=== PATIENT | female | born 1975 | race African-American/Black ===

== ENCOUNTER 2019-03-09 21:04 | Emergency (ER) | payer OTHER ==
--- NOTE | 2019-03-09 21:31 | ER Document Report ---
ED Medical Screen (RME) - General Stated Complaint: FEVER Time Seen by Provider: 03/09/19 21:26 Mode of Arrival: Ambulatory Information source: Patient Notes: This 44-year-old female with no past medical history presents today with reports of fever up to 102 on and off since last week. Reports cough sinus drainage sinus pressure ears hurting. I have greeted and performed a rapid initial assessment of this patient. A comprehensive ED assessment and evaluation of the patient, analysis of test results and completion of the medical decision making process will be conducted by additional ED providers. Dictation of this chart was performed using voice recognition software; therefore, there may be some unintended grammatical errors. TRAVEL OUTSIDE OF THE [place] IN LAST 30 DAYS: No - Related Data Allergies/Adverse Reactions: acetaminophen [From Percocet] Allergy (Verified 04/02/15 18:49) cefuroxime axetil [From Ceftin] Allergy (Verified 04/02/15 18:49) oxycodone HCl [From Percocet] Allergy (Verified 04/02/15 18:49) sulfamethoxazole [From Septra] Allergy (Verified 04/02/15 18:49) trimethoprim [From Septra] Allergy (Verified 04/02/15 18:49) vancomycin [Vancomycin] Allergy (Verified 04/02/15 18:49) Past Medical History - Past Medical History Cardiac Medical History: Reports: Hx Hypercholesterolemia, Hx Hypertension Neurological Medical History: Reports: Hx Migraine Renal/ Medical History: Reports: Hx Ovarian Cysts Skin Medical History: Reports Hx Cellulitis, Reports Hx MRSA Past Surgical History: Reports: Hx Adenoidectomy, Hx Section, Hx Chol ecystectomy, Hx Myringotomy, Hx Nose Surgery, Hx Tonsillectomy - Immunizations Immunizations up to date: Yes Hx Diphtheria, Pertussis, Tetanus Vaccination: Yes Physical Exam - Vital signs Vitals: Temp Pulse Resp BP Pulse Ox 99.2 F 99 18 179/96 H 100 03/09/19 21:09 03/09/19 21:09 03/09/19 21:09 03/09/19 21:09 03/09/19 21:09 Course - Vital Signs Vital signs: Temp Pulse Resp BP Pulse Ox 99.2 F 99 18 179/96 H 100 03/09/19 21:09 03/09/19 21:09 03/09/19 21:09 03/09/19 21:09 03/09/19 21:09
[2019-03-09] MEDS ORDERED: DEXAMETHASONE SOD PHOS INJ 10 MG/1 ML VIAL IM ONE (22:37)
--- NOTE | 2019-03-09 22:37 | RADIOLOGY REPORT (SQ) ---
EXAM DESCRIPTION: XR CHEST 2 VIEWS COMPLETED DATE/TME: 03/09/2019 21:29 CLINICAL HISTORY: cough COMPARISON: None FINDINGS: Cardiac silhouette is within normal limits. There is no focal parenchymal or pleural disease. There is no acute osseous process visualized. IMPRESSION: No evidence of acute cardiopulmonary disease.
--- NOTE | 2019-03-09 22:38 | RADIOLOGY REPORT (SQ) ---
CLINICAL HISTORY: sinus pressure pain fever COMPARISON: None. FINDINGS: Single view of the paranasal sinuses were submitted. There is mucoperiosteal thickening of the right maxillary sinus compatible chronic sinusitis changes. No fluid levels are noted. Questionable mucoperiosteal thickening of the left maxillary sinus versus possible mucoid retention cyst. IMPRESSION: Chronic sinusitis changes. No fluid level to suggest acute sinusitis visualized in this single view. Correlation with a CT could be helpful for further evaluation.
--- NOTE | 2019-03-09 22:41 | ER Document Report ---
ED General - General Chief Complaint: Productive Cough Stated Complaint: FEVER Time Seen by Provider: 03/09/19 21:26 Mode of Arrival: Ambulatory TRAVEL OUTSIDE OF THE [place] IN LAST 30 DAYS: No - HPI Notes: Patient is a 44-year-old female who presents to the ED complaining of nasal congestion/discharge, sinus pressure, semi-productive cough, feverish, body aches, sore throat, hoarseness 1 week. Pt states that she is able to swallow, but will feel like food gets stuck on occasion. She has not had any drooling. She is still urinating normally having normal bowel movements. Patient has been using some [id number] meds for symptoms. She denies any significant past medical history including cardiopulmonary history and immunocompromised conditions. Patient denies any smoking or IV drug use. Denies any current headache, neck pain, chest pain, palpitations, syncope, shortness of breath, wheeze, dyspnea, abdominal pain, nausea/vomiting/diarrhea, urinary retention, dysuria, hematuria, or rash. H/o tonsilectomy. - Related Data Allergies/Adverse Reactions: acetaminophen [From Percocet] Allergy (Verified 04/02/15 18:49) cefuroxime axetil [From Ceftin] Allergy (Verified 04/02/15 18:49) oxycodone HCl [From Percocet] Allergy (Verified 04/02/15 18:49) sulfamethoxazole [From Septra] Allergy (Verified 04/02/15 18:49) trimethoprim [From Septra] Allergy (Verified 04/02/15 18:49) vancomycin [Vancomycin] Allergy (Verified 04/02/15 18:49) Past Medical History - General Information source: Patient - Social History Smoking Status: Never Smoker Chew tobacco use (# tins/day): No Frequency of alcohol use: Social Drug Abuse: None Family History: Arthritis, CVA, DM, Hyperlipidemia, Hypertension, Malignancy, Thyroid Disfunction Patient has suicidal ideation: No Patient has homicidal ideation: No - Past Medical History Cardiac Medical History: Reports: Hx Hypercholesterolemia, Hx Hypertension Neurological Medical History: Reports: Hx Migraine Renal/ Medical History: Reports: Hx Ovarian Cysts Skin Medical History: Reports Hx Cellulitis, Reports Hx MRSA Past Surgical History: Reports: Hx Adenoidectomy, Hx Section, Hx Cholecystectomy, Hx Myringotomy, Hx Nose Surgery, Hx Tonsillectomy - Immunizations Immunizations up to date: Yes Hx Diphtheria, Pertussis, Tetanus Vaccination: Yes Review of Systems - Review of Systems -: Yes All other systems reviewed and negative Physical Exam - Vital signs Vitals: Temp Pulse Resp BP Pulse Ox 99.2 F 99 18 179/96 H 100 03/09/19 21:09 03/09/19 21:09 03/09/19 21:09 03/09/19 21:09 03/09/19 21:09 - Notes Notes: PHYSICAL EXAMINATION: GENERAL: Well-appearing, well-nourished and in no acute distress. A&Ox4. Answers questions appropriately. Moves comfortably w/o notable distress HEAD: Atraumatic, normocephalic. EYES: Pupils equal round and reactive to light, extraocular movements intact, sclera anicteric, conjunctiva are normal. ENT: EAC clear b/l. TM's intact b/l without erythema, fluid, or perforation. Nares patent and with clear discharge. oropharynx mild erythema without exudates. tonsils absent. No palatine shift. Uvula midline. No tongue protrusion. + hoarseness of voice noted. No drooling or airway compromise. Moist mucous membranes. + mild b/l maxillary sinus tenderness. NECK: Normal range of motion, supple without lymphadenopathy. No rigidity/meningismus. LUNGS: Breath sounds clear to auscultation bilaterally and equal. No wheezes rales or rhonchi. No retractions HEART: Regular rate and rhythm without murmurs, rubs, gallops. ABDOMEN: Soft, nontender, nondistended abdomen. No guarding, no rebound. Normal bowel sounds present. No CVA tenderness bilaterally. NEUROLOGICAL: Normal speech, normal gait. PSYCH: Normal mood, normal affect. SKIN: Warm, Dry, normal turgor, no rashes or lesions noted. Course - Re-evaluation Re-evalutation: 03/09/19 23:15 Patient is an afebrile, well-hydrated, 44-year-old female who presents to the ED with acute URI, suspect viral. Vitals are acceptable. PE is otherwise unremarkable. CXR/Water's view negative. Rapid strep neg. UA/hcg unremarkable. No other labs or imaging warranted at this time based on H&P. Patient has no significant cardiopulmonary or immunocompromised medical conditions. Patient's lungs are clear to auscultation bilaterally without tachycardia, hypoxia, or tachypnea. Patient is tolerating p.o. without any difficulties as tested by myself in the room with PO fluids/food. Pt was given decadron. Pt states that she is feeling better than when she arrived. Low suspicion for any meningitis, sepsis, peritonsillar/pharyngeal abscess, respiratory compromise, severe dehydration, pneumonia, epiglottitis, or other emergent systemic condition at this time. Patient is aware this condition can change from initial presentation and she needs to monitor symptoms closely. Conservative measures otherwise for symptoms. Recheck with your PCM in 2-3 days. Return to the ED with any worsening/concerning symptoms otherwise as reviewed in discharge. Patient is in agreement. - Vital Signs Vital signs: Temp Pulse Resp BP Pulse Ox 99.2 F 99 18 179/96 H 100 03/09/19 21:09 03/09/19 21:09 03/09/19 21:09 03/09/19 21:09 03/09/19 21:09 - Laboratory Laboratory results interpreted by me: 03/09/19 22:39 Urine Blood SMALL H Discharge - Discharge Clinical Impression: Acute URI Condition: Stable Disposition: HOME, SELF-CARE Instructions: Upper Respiratory Illness ([facility]) Additional Instructions: Maintain adequate fluid intake tylenol/ibuprofen as needed alternating every 3 hours for fever/body ache over the counter cold medication as needed for symptoms Humidified air may help Wash your hands regularly Wear a mask when coughing F/u: with your PCM in 2-3 days for a recheck Return to the ED with any fever, altered mental status/behavior, chest pain, palpitations, syncope, headache, neck pain/stiffness, shortness of breath, chest pains, wheezing, drooling, trouble swallowing/breathing, abdominal pain, n/v/d, rash, or worsening/concerning symptoms otherwise. Prescriptions: Benzonatate [Tessalon Perle 100 mg Capsule] 100 mg PO Q8HP PRN #15 cap PRN Reason: Nystatin/Dexameth/Diphen [Magic Mouthwash ([facility] Formula) Susp] 5 ml PO QID #120 ml Forms: Elevated Blood Pressure, Return to Work Referrals: [facility] [Provider Group] - Follow up as needed
[2019-03-09 23:04] LABS: APPEARANCE,URINE CLEAR; BILIRUBIN,URINE NEGATIVE (NEGATIVE); COLOR,URINE YELLOW; GLUCOSE, URINE NEGATIVE (NEGATIVE); KETONES,URINE NEGATIVE (NEGATIVE); LEUKOCYTE ESTERASE,URINE NEGATIVE (NEGATIVE); NITRITE,URINE NEGATIVE (NEGATIVE); PROTEIN,URINE NEGATIVE (NEGATIVE); URINE SPECIFIC GRAVITY 1.011; UROBILINOGEN,URINE NEGATIVE mg/dL (<2.0)
[2019-03-10 00:56] VITALS: BP 152/92
== END 2019-03-09 23:45 | disposition home or self-care (01) ==
LOC: ER 21:04
DX: J06.9 Acute upper respiratory infection, unspecified (principal); R50.9 Fever, unspecified; R09.81 Nasal congestion; M79.10 Myalgia, unspecified site; E78.00 Pure hypercholesterolemia, unspecified; I10 Essential (primary) hypertension; Z86.14 Personal history of Methicillin resistant Staphylococcus aureus infection; Z90.49 Acquired absence of other specified parts of digestive tract; Z88.6 Allergy status to analgesic agent; Z88.3 Allergy status to other anti-infective agents
CPT/HCPCS: 99283; 96372; 87070; 87880; 81025; 81001; 71046; 70210; J1100